=== PATIENT | female | born 1970 | race Hispanic/Latino ===

== ENCOUNTER 2019-07-17 22:25 | Emergency (ER) | payer OTHER | END 2019-07-18 01:45 | disposition home or self-care (01) | LOC: EDH 22:25 | DX: M25.561 Pain in right knee (principal); M77.9 Enthesopathy, unspecified; F41.9 Anxiety disorder, unspecified; F32.9 Major depressive disorder, single episode, unspecified | CPT/HCPCS: 73562; 93971; 96372 ==

== ENCOUNTER 2021-05-23 12:08 | Emergency (ER) | payer OTHER ==
[~2021-05-23] VITALS: Ht 154.9 cm; Wt 90.7 kg
[2021-05-23] MEDS ORDERED: IBUP-2070 PO (17:28)
[2021-05-23] MEDS ORDERED: BENZ-39 PO (17:28)
[2021-05-23] MEDS ORDERED: ACET-66 PO (17:28)
[2021-05-23 18:00] VITALS: BP 148/76
== END 2021-05-23 18:25 | disposition home or self-care (01) ==
LOC: EDH 12:08
DX: U07.1 COVID-19 (principal)
CPT/HCPCS: 87635; 87804 ×2; 99283; C9803